=== PATIENT | female | born 1955 | race Caucasian/White ===

== ENCOUNTER → 2017-01-08 | Emergency (ER) | payer OTHER ==
[~2017-01-08] MED LIST: CALCIUM GLUCONATE 1000 MG/10 ML INJ IV ONE; EPINEPHRINE INJ 1 MG/10 ML DISP.SYRIN ONE; SODIUM BICARBONATE 8.4% INJ 50 MEQ/50 ML DISP.SYRIN ONE
--- NOTE | 2017-01-08 18:09 | ER Document Report ---
ED General - General Stated Complaint: UNRESPONSIVE Time Seen by Provider: 01/08/17 18:09 - HPI Patient complains to provider of: Cardiac arrest Notes: Patient coming in the EMS initially for nausea vomiting diarrhea vomiting black material during transport patient converted to a cardiac arrest. According EMS they performed Eileen care for approximately 3-4 minutes prior to arrival. They were able to place a Ha airway. They were not able to obtain IO access until arrival here to the ER note ACLS medications were given. Otherwise patient had a history of nausea vomiting for 1 week found down the floor by EMS. Past medical history is unknown except for surgery approximate 2 weeks ago on the left wrist. Upon arrival to the ER CPR is being performed patient is being bagged through the Ha airway. There is a large amount of black vomitus on the patient's chest. Otherwise history is limited due to situation. Past Medical History - Social History Smoking Status: Unknown if Ever Smoked Family History: Reviewed & Not Pertinent Review of Systems - Review of Systems -: Yes ROS unobtainable due to patient's medical condition Physical Exam - General General appearance: Unresponsive - HEENT Head: Normocephalic, Atraumatic Pupils: Fixed - Respiratory Respiratory status: Respiratory distress Breath sounds: Other - Rhonchorous bilateral BVM through the Ha tube - Cardiovascular Murmur: No Notes: Femoral pulses are only felt with CPR. - Abdominal Inspection: Obese Distension: Distended - Extremities General upper extremity: Normal inspection, Normal temperature - Cool to touch mottled General lower extremity: Normal inspection, Normal temperature - Cold to touch mottled - Skin Skin Temperature: Warm Skin Moisture: Dry Skin Color: Dusky, Mottled Course - Re-evaluation Re-evalutation: 01/08/17 22:32 Patient is a Ha airway with bilateral breath sounds. Vomitus was suctioned through the Ha airway and also around the mouth. Due to bilateral breath sounds Ha airway has been intact. A second hyaline was placed in the right leg. Multiple rounds of ACLS were given. Patient underwent 10 doses of epinephrine also gave bicarb and calcium gluconate dressing agencies. No reversible cause of cardiac arrest were found. Patient continues to be in PEA then pursued to a systole. After multiple rounds of ACLS decision was made to pronounce the patient. Family was invited in to the trauma room for the last round. I did notify the family that we will be halting measures. Critical Care Note - Critical Care Note Total time excluding time spent on procedures (mins): 35 Comments: Time spent direct patient care managing cardiac arrest Discharge - Discharge Clinical Impression: Cardiac arrest Disposition:
== END | disposition expired ==
LOC: ER 17:38
DX: I46.9 Cardiac arrest, cause unspecified (principal); R11.2 Nausea with vomiting, unspecified; R19.7 Diarrhea, unspecified
CPT/HCPCS: J0171; J3490